=== PATIENT | male | born 1985 | race Caucasian/White ===

== ENCOUNTER 2021-02-12 18:52 | Emergency (ER) | payer OTHER ==
[~2021-02-12] VITALS: Ht 180.3 cm; Wt 113.4 kg
[2021-02-12 18:52] VITALS: BP 158/110
--- NOTE | 2021-02-12 18:55 | NUR ---
PT BIBA TO BED 02.
[2021-02-12] MEDS ORDERED: ONDANSETRON 4 MG/2 ML VIAL IVP ONE (19:35)
[2021-02-12] MEDS ORDERED: MORPHINE SULFATE 4 MG/ML SYR IVP ONE ×2 (19:35→23:10)
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
--- NOTE | 2021-02-12 20:00 | NUR ---
PT REFUSED MORPHINE AND ZOFRAN. 20G IV ESTABLISHED AND CONSENT OBTAINED FOR IV CONTRAST.
[2021-02-12 20:05] LABS: BASOPHILS % (AUTO) 0.6 % (0.0-2.0); EOSINOPHILS # (AUTO) 0.2 K/uL (0-0.4); EOSINOPHILS % (AUTO) 2.9 % (0.0-4.0); HEMATOCRIT 45.7 % (36-52); HEMOGLOBIN 15.4 g/dL (12.0-18.0); LYMPHOCYTES # (AUTO) 1.7 K/uL (2.0-11.5); LYMPHOCYTES % (AUTO) 23.2 % (20.5-51.1); MEAN CORPUSCULAR HEMOGLOBIN 32 pg (27-31); MEAN CORPUSCULAR HGB CONC 34 g/dL (33-37); MEAN CORPUSCULAR VOLUME 93.5 fL (80-94); MONOCYTES # (AUTO) 0.7 K/uL (0.8-1.0); MONOCYTES % (AUTO) 9.7 % (1.7-9.3); NEUTROPHILS # (AUTO) 4.8 K/uL (1.8-7.7); NEUTROPHILS % (AUTO) 63.6 % (42.2-75.2); PLATELET COUNT (AUTO) 292 K/uL (140-450); RED BLOOD CELL COUNT(AUTO) 4.89 MIL/uL (4.20-6.10); RED CELL DISTRIBUTION WIDTH 13.9 % (11.6-13.7); WHITE BLOOD COUNT (AUTO) 7.5 K/uL (4.8-10.8)
[2021-02-12 20:25] LABS: ANION GAP 10.2 (8-16); CARBON DIOXIDE 27.4 mmol/L (21-32); CREATININE 0.9 mg/dL (0.6-1.3); POTASSIUM 3.6 mmol/L (3.5-5.1)
--- NOTE | 2021-02-12 20:49 | NUR ---
CONTRAST OF CHEST WAS GIVEN, CT WAS CALLED. ROOM IS BEING PREPARED.
--- NOTE | 2021-02-12 21:30 | NUR ---
TDAP VACCINE INFO: SANOFI PASTEUR LIMITED 0.5ML IM TETAMUS OTXOID REDUCED DIPHTHERIA TOXOID AND ACELLULAR PERTUSSIS VACCINE ABSORBED ADACEL VACCINE CLINICAL UNIT COORDINATOR (L) [id number] (E) [id number]
[2021-02-12] MEDS ORDERED: LIDOCAINE 5% 1 EA PATCH TP SCH (23:10)
--- NOTE | 2021-02-12 23:26 | NUR ---
PT REFUSED MORPHINE AT THIS TIME.
--- NOTE | 2021-02-12 23:35 | NUR ---
[facility] AT BEDSIDE FOR TRANSPORT
[2021-02-13 00:03] VITALS: BP 158/110
--- NOTE | 2021-02-13 00:04 | NUR ---
Patient to be transferred to [facility]. Is being transferred due to HIGHER LEVEL OF CARE. Receiving facility has accepting physician and available space. ER physician has signed transfer form. Patient or responsible libertarian has agreed to transfer and signed form. Patient belongings inventoried and will be sent with patient. Copy of nursing notes, lab reports, EKG, Physicians Orders and X-rays to be sent with patient. Report called to BIRGIT LAUREN at receiving facility. [facility] ambulance service has been called for transfer. ETA is 30 MIN.
== END 2021-02-13 00:03 | disposition admitted as inpatient to this hospital (09) ==
LOC: MED 18:52
DX: S22.089A Unspecified fracture of T11-T12 vertebra, initial encounter for closed fracture (principal); V98.8XXA Other specified transport accidents, initial encounter; Y93.89 Activity, other specified; Y92.89 Other specified places as the place of occurrence of the external cause; Y99.8 Other external cause status
CPT/HCPCS: 36415; 71260; 80048; 85025; 90471; 90715; 99285; J2270; Q9967; J2405

== ENCOUNTER 2022-01-17 16:17 | Emergency (ER) | payer OTHER ==
[~2022-01-17] VITALS: Ht 180.3 cm; Wt 124.7 kg
[2022-01-17 16:25] VITALS: BP 194/113
--- NOTE | 2022-01-17 16:42 | NUR ---
PT AMBULATED TO BED 09.
--- NOTE | 2022-01-17 17:00 | NUR ---
pt c/o bump to right testicle x3 days. denies any drainage. pending further eval.
[2022-01-17] MEDS ORDERED: NAPR-54 PO (19:19)
[2022-01-17] MEDS ORDERED: SULF-59 PO (19:19)
--- NOTE | 2022-01-17 19:28 | NUR ---
received pt w/o signs or complaints of discomfort. awaiting for radiology results.
[2022-01-17 19:46] VITALS: BP 140/85
--- NOTE | 2022-01-17 19:47 | NUR ---
Patient discharged with v/s stable. Written and verbal after care instructions given and explained. Patient alert, oriented and verbalized understanding of instructions. Ambulatory with steady gait. All questions addressed prior to discharge. ID band removed. Patient advised to follow up with PMD. Rx of NAPROXEN AND BACTRIM given. Patient educated on indication of medication including possible reaction and side effects. Opportunity to ask questions provided and answered.
== END 2022-01-17 19:47 | disposition home or self-care (01) ==
LOC: MED 16:17
DX: N50.811 Right testicular pain (principal); N39.0 Urinary tract infection, site not specified; I10 Essential (primary) hypertension; Z79.899 Other long term (current) drug therapy
CPT/HCPCS: 76870; 81002; 99284; Q0092